=== PATIENT | female | born 1970 | race Caucasian/White ===

== ENCOUNTER → 2018-03-27 09:07 | Outpatient (CLI) | payer OTHER, SELFPAY ==
[2018-03-27 09:41] LABS: Bacteria Urine None Seen; WBC Urine None Seen (0-5/HPF)
[2018-03-27 09:59] LABS: Add Manual Diff / Slide Review NO; Basophils Percent Auto 0.8 % (0-2); Hematocrit 35.8 % (36-46); Lymphocytes Percent Auto 26.7 % (25-40); Mean Corpuscular HGB Conc 33.5 % (30-36); Mean Corpuscular Hemoglobin 27.5 PG (26-34); Mean Corpuscular Volume 81.9 fL (80-100); Monocytes Percent Auto 4.6 % (3-14); Neutrophils Absolute Auto 3600 /uL (3000-5900); Neutrophils Percent Auto 65.9 % (50-75); Platelet Count 212 X10^3/uL (150-400); Red Blood Cell Count 4.37 X10^6/uL (4.0-5.2); Red Cell Distribution Width 14.3 % (11.6-14.8); White Blood Cell Count 5.5 X10^3/uL (4.5-11.0)
[2018-03-27 10:00] LABS: Appearance Urine UA CLEAR; Bilirubin Urine UA NEGATIVE (NEGATIVE); Color Urine UA YELLOW; Glucose Urine UA NEGATIVE (Normal); Ketones Urine UA NEGATIVE (NEGATIVE); Leukocyte Esterase Urine UA NEGATIVE (NEGATIVE); Nitrite Urine UA NEGATIVE (Negative); Occult Blood Urine UA 3+ (Negative); Protein Urine UA NEGATIVE (Negative); Specific Gravity Urine UA <=1.005 (1.000-1.035); Urobilinogen Urine UA 0.2 E.U./dL (0.2)
[2018-03-27 10:10] LABS: BUN Creatinine Ratio 16.3 (6-22); Blood Urea Nitrogen 13 mg/dL (7-17); Calcium 9.5 mg/dL (8.4-10.2); Carbon Dioxide 32 mmol/L (22-32); Chloride 102 mmol/L (98-107); Estimated Glomerular Filt Rate > 60.0 mL/min (>60); Glucose 95 mg/dL (70-100); HEMOLYSIS < 15 (0-50); Potassium 4.4 mmol/L (3.4-5.1); Sodium 147 mmol/L (137-145)
[2018-03-27 10:20] LABS: Culture Indicated Urine Cult Not Indicated; RBC Urine 1-5/HPF (0-5/HPF); Squamous Epithelial Cell Urine 1-5 /HPF
== END ==
PROVIDERS: PCP Family Medicine; Visit Provider Obstetrics & Gynecology
DX: N94.89 Other specified conditions associated with female genital organs and menstrual cycle (principal)
CPT/HCPCS: 36415; 80048; 81001; 85025; 86850; 86900; 86901

== ENCOUNTER → 2018-03-27 09:38 | Outpatient (CLI) | payer OTHER, SELFPAY | PROVIDERS: PCP Family Medicine; Visit Provider Obstetrics & Gynecology | DX: N94.89 Other specified conditions associated with female genital organs and menstrual cycle (principal) ==

== ENCOUNTER 2018-03-29 06:22 | Inpatient (IN) | payer OTHER, SELFPAY ==
[2018-03-24 14:43] VITALS: BMI 26.5
[2018-03-29] VITALS (19 sets, daily range): BP systolic 95–121; BP diastolic 48–74; PULSE 70–90; RESP 12–18; TEMP 36.1–37.1; O2SAT 95–100; BMI 26.5
--- NOTE | 2018-03-29 | PATH_ITS ---
[facility] Accession Number: [id number] . 01 Material submitted: . UTERUS, CERVIX, BILATERAL FALLOPIAN TUBES AND OVARIES . 02 Diagnosis: Uterus with Bilateral Fallopian Tubes and Ovaries: Adenomyosis, uterus. Disordered proliferative endometrium, negative for atypia. Serous cystadenoma, left ovary, negative for atypia. Hydrosalpinx, right fallopian tube. Small peritubal cyst, left fallopian tube. MRV/03/31/2018 . 02 Electronically signed: . Boni Chase MD, Pathologist NPI- [id number] . 01 Gross description: . Received in formalin, labeled uterus, cervix, bilateral fallopian tubes + ovaries, is a uterus (118 grams, 4.8 cm AP, 10.2 cm SI, 5.5 cm ML) with attached ovaries (right-4.0 x 1.2 x 0.5 cm; left-4.3 x 3.2 x 2.8 cm) and fimbriated fallopian tubes (right: length - 6.7 cm, diameter - up to 0.9 cm; left: length - 5.5 cm, diameter - up to 0.9 cm). The cervix (2.0 cm AP, 2.6 cm ML) has a transverse os and patent endocervical canal. The endometrium (average thickness - 0.2 cm) is cui-pink smooth and flat. The myometrium (thickness - 2.2 cm) is cui-white and unremarkable. The serosa is pale cui smooth and shiny. The ovaries have mckay-yellow smooth and shiny bosselated and focally flat serosa. The right ovary has cui-mckay solid firm parenchyma with corpus albicans and corpus luteum identified. The left ovary has cui-mckay solid cystic parenchyma with corpus albicans and corpus luteum identified. The cavity (3.5 x 2.5 x 1.2 cm) contains red-brown watery fluid. The lining is smooth and flat with no excrescences identified. The fallopian tubes have dark maroon smooth and shiny serosa and cui dilated lumens partially filled with dark maroon viscous fluid. Section code: (A1) anterior cervix; (A2) posterior cervix; (A3-A5) anterior endomyometrium; (A6-A8) posterior endomyometrium; (A9) right ovary, provider relations representative serial sections; (A10-A12) left ovary, provider relations representative serial sections; (A13) right fallopian tube, provider relations representative serial sections; (A14) right fimbria, bivalved, entirely submitted; (A15) left fallopian tube, provider relations representative serial sections; (A16-A17) left fimbria, bivalved, entirely submitted. ([id number]) /[facility] . 02 Pathologist provided ICD-10: N80.0 . 02 CPT . 102431 Performed at: 01 [facility] [address] [id number] MD Quentin Ferrari MD Phone: [phone] Performed at: 02 [facility] [address] [place] [id number] MD Adin Miller MD Phone: [phone]
[2018-03-29] MEDS: LACTATED RINGERS 1,000 ML 42 ML IV ×2 (07:16→09:32)
--- NOTE | 2018-03-29 08:00 | PM.PREOP ---
Pre-operative Note Interval Note Pre-op Check: Yes History & Physical Reviewed by Physician Changes: No
[2018-03-29] MEDS: CEFAZOLIN 2 GM/100 ML FROZ.PIGGY IV (08:03)
--- NOTE | 2018-03-29 08:46 | SUR.OPER ---
Lithotomy on padded OR bed. Biggs Pad Positioner under torso. Head on pillow, arms padded and tucked at sides. Legs secured in padded yellow fins stirrups.
[2018-03-29] MEDS: BUPIVACAINE 0.25% (PF) VIAL 30 ML INJ (08:54)
[2018-03-29] MEDS: LIDOCAINE 1% W/EPI INJ 15 ML INJ (08:56)
[2018-03-29] MEDS: METOCLOPRAMIDE 10 MG/2 ML INJ IV (10:49)
--- NOTE | 2018-03-29 10:50 | PM.GYNOP.1 ---
Operative Date/Time/Diagnoses Date of procedure: 03/29/18 Time of procedure: 08:00 Pre-op diagnosis: Chronic pelvic pain, Pelvic Congestion Syndrome, Endometriosis Post-op diagnosis: same Procedure: Procedures Operation Date: 03/29/18 07:45 Actual Procedures Side Surgeon p Laparoscopic Assisted Vag Hysterectomy Not Applicable Radha Estevez MD s Laparoscopic Aldynjjn-Jdbuleulreqt-[id number] Bilateral Radha Estevez MD Indications: The patient is a 47-year-old 9 para 4 abortus 5 female here for hysterectomy for definitive surgical management of longstanding pelvic pain. She underwent a diagnostic laparoscopy with insertion of a progestin intrauterine device on 31 August 2017. Operative findings included endometriosis over the ureter in the left posterior cul-de-sac and dilated pelvic veins. The uterus was covered in tiny cystic lesions, one of which was biopsied and returned with normal uterine serosa. Options for treatment of pelvic congestion and suspected endometriosis were reviewed with the patient postoperatively and included hormonal suppression, venous embolization for pelvic congestion, and hysterectomy. She tried trigger point injections for possible abdominal wall source, as she has had tenderness adjacent to her scar. She attended 1 pelvic floor physical therapy visit and discontinued thereafter, not feeling it was helpful. She tried the progestin intrauterine device for 5 months and found no benefit in her pelvic pain. At that time, she felt like hysterectomy was her preferred next step. She describes her pain as approximately 1 year of midline lower abdominal pelvic pain. She can think of no inciting event for the onset which began approximately March 2017. She has regular, monthly menstrual cycles; however, after January 2017, she skipped February and March menses then resumed regular menses in April. She characterizes the pain as grabbing, twisting, and pulling on the the back. It is sharp, constant, and 5 to 6/10 intensity. It is ameliorated by supine position or resting on her left side with her leg bent. Pain is increased when her abdomen is touched, when there is pressure on her abdomen, or when she exercises. She also has deep dyspareunia. There is no change in pain with a full bladder or when she empties her bladder, and pain is not associated with bowel movements. She denies any exacerbation of pain with menses and her menstrual flow was normal. She has had no fever, chills, sweats, dysuria, urgency, frequency, change in color of her urine, nausea, vomiting, diarrhea, constipation, blood in her stool, or change in bowel habits. The technique for hysterectomy was discussed, including possible laparoscopic-assisted versus abdominal hysterectomy or possible supracervical hysterectomy. We also discussed the pros and cons of removing or retaining her ovaries and subsequent menopausal symptoms. The decision was made for laparoscopic-assisted vaginal hysterectomy with bilateral salpingo-oophorectomy. The risks, benefits, limitations, alternatives, and expectations of surgery were discussed, and the consent was reviewed and signed prior to the date of surgery. Surgeon: Radha Estevez Nurse Special: Doug Castellano Anesthesia Type: General and Local (0.25% marcaine and 1% lidocaine with epi) Operative Notes Findings: Exam under anesthesia: The uterus was approximately 8 weeks in size and retroverted. No adnexal masses were palpable. Operative findings: The uterus was approximately 8 weeks in size. The posterior aspect of the uterus was covered with multiple small, white, cystic -appearing lesions suggestive of endometriosis. The right fallopian tube was discontinuous status post tubal surgery. The right ovary appeared small and normal in appearance. The left ovary was enlarged with a 2 x 3 cm simple appearing cyst, and the left fallopian tube was normal in appearance. The ureters were visualized easily during the case and noted to peristalse at the completion of the hysterectomy. Dilated pelvic veins were noted bilaterally. The bladder was adhesed to the anterior uterus status post 4 sections. However, these adhesions were able to be dissected at the time of the surgery. The liver edge appeared normal. The appendix was not visualized. There were no omental or other adhesions noted. Closure Type: primary Specimen(s): other (Uterus, cervix, and bilateral tubes and ovaries) Applied: catheter Estimated blood loss (mL): 85 Blood products transfused: none Procedure in detail: The patient was taken to the operating room, where general endotracheal anesthesia was administered without complications. The patient was placed into the low dorsal lithotomy position with her lower extremities in Yellofin stirrups. Exam under anesthesia was then performed with the findings noted above. Perineum, vagina, and abdomen were then prepped and draped in a sterile fashion. A Campos catheter was then placed. Procedure time-out was then performed. Attention was first turned to the perineum for placement of the uterine manipulator. A sterile bivalve speculum was inserted into the vagina, then the anterior lip of the cervix was grasped with a single-tooth tenaculum. The cervix was then serially dilated using Adolfo dilators until a ZUMI uterine manipulator could be advanced. The balloon was inflated, then the tenaculum and speculum removed from the vagina. Local anesthetic was then injected infraumbilically using 0.25% Marcaine with epinephrine. A horizontal skin incision was then made with a scalpel below the umbilicus measuring approximately 7 mm in length. The abdominal wall was then grasped and tented up while a Veress needle was inserted through the incision. Saline drop test was suggestive of intraperitoneal placement. Carbon dioxide gas insufflation was then performed with appropriate opening pressures noted. After instilling approximately 2 L of carbon dioxide, a 5 mm 0 degree laparoscope within a 5 mm trocar was inserted through the anterior layers of the abdominal wall using Optiview technique. The abdomen and pelvis were visualized with the findings as noted above. The patient was placed into Trendelenburg position for better visualization. A second and third trocar was inserted at the patient's lower quadrants. These were done by first instilling local anesthetic, then incising the skin and inserting a 5 mm trocar under direct visualization using the laparoscopic. An atraumatic grasper was then utilized to manipulate the tissue and improve visualization throughout the pelvis. Gentle traction was then applied on the left distal fallopian tube which was pulled medially and superiorly. The left infundibulopelvic ligament was then cross-clamped, cauterized, and cut using the PlasmaKinetic, and the left peritoneum dissected anteriorly to separate the left ovary from the pelvic sidewall. The left round ligament was then cross clamped, cauterized, and cut. Residual bleeding was controlled with Bovie cautery. The anterior leaf of the broad ligament was undermined with the PlasmaKinetic and the left aspect of the bladder flap created using Bovie cautery. Mildly dense adhesions from the bladder were noted at the midline, and initial dissection was performed using gentle traction. Some residual left parauterine tissue was dissected with cautery and gentle traction, skeletonizing the left uterine vessels. The left uterine artery and vein were then cross clamped, cauterized, and cut using the PlasmaKinetic. Attention was then turned to the right adnexa, where the right distal fallopian tube was grasped and tented anteriorly. The right infundibulopelvic ligament was then cross clamped, cauterized, and cut using the PlasmaKinetic. Dissection on the right side was similar to the left. The right round ligament was then cross clamped, cauterized, and cut and the right anterior leaf of the broad ligament was undermined with the PlasmaKinetic to create the right side of the bladder flap using Bovie cautery. This incision was extended to the midline until the dense adhesion was encountered. Then the adhesed bladder was dissected inferiorly using gentle traction. The right uterine vessels were then skeletonized, cross clamped, cauterized, and cut. Additional cautery was applied as needed to achieve hemostasis. The pelvis was then irrigated and suctioned. Once hemostasis was ensured attention was turned to the perineum for the vaginal portion of the case. Instruments were removed from the abdomen, leaving the trocars in place. The majority of the carbon dioxide gas was allowed to escape. The uterine manipulator was removed. A sterile weighted speculum was placed in the posterior vagina and a Jony placed in the anterior vagina. The cervix was grasped with double toothed tenaculum, then 1% lidocaine with epinephrine was injected circumferentially for hemostasis. A circumferential incision was then made with Bovie cautery. Using blunt dissection with the catalytic converter operator's finger the vaginal mucosa was gently pushed back off the cervix, better visualizing the plane for the anterior-posterior peritoneal entry. The posterior peritoneum was grasped and incised sharply using Metzenbaum scissors. The midline of the posterior vaginal cuff and peritoneum was then tagged with an 0 Vicryl suture for later identification. The Auvard speculum was then inserted into the posterior peritoneum. The anterior peritoneum could not be entered readily, so the uterosacral ligaments were cross-clamped, cut, and suture-ligated with 0 vicryl, then tagged for later identification. The anterior peritonium was then bluntly entered using push with the catalytic converter operator's finger and a moistened lap sponge. The Jony was then replaced. The right cardinal and inferior uterine vessels were then cross clamped with the Magdiel clamp cut and suture ligated with an 0 Vicryl suture. This step was then performed on the patient's left cardinal and uterine vessels as well. The uterus and bilateral fallopian tubes and ovaries were then removed through the vagina. The pedicles were inspected. Bleeding noted at the left side ws controlled by grasping the pedicle with a right angle clamp, then placing a [id number] suture of 0 vicryl. This step was repeated once more on the left and once on the right. Hemostasis was ensured with some additional cautery. Some residual bleeding at the level of the cuff was controlled with Bovie cautery. The peritoneum was then closed with a pursestring suture of 0 Vicryl, starting anteriorly at the bladder peritoneum including both uterosacral ligaments and skiving across the posterior peritoneum. This was tied down, and the vagina was then irrigated with sterile saline. The vaginal mucosa was then closed with serial [id number] sutures of 0 Vicryl. A sponge stick was then placed into the vagina, and attention returned to the patient's abdomen for inspection of the vaginal cuff from above. Carbon dioxide gas was then reinflated into the abdomen. The cuff was irrigated and suctioned. Some residual bleeding anterior to the cuff was controlled with Bovie cautery. The ovarian pedicles were examined and no residual bleeding was noted. At this point the laparoscopic portion of the procedure was deemed complete. The carbon dioxide gas was allowed to escape and the trocars removed from the abdomen. The trocar sites were then closed with 4-0 Monocryl in a subcuticular fashion. Exofin skin glue was then applied. The sponge-stick was then removed from the vagina. At this point the procedure was deemed complete. Sponge, lap, and needle count were correct x3. The patient was subsequently awakened, extubated, and transferred to the PACU in stable condition. Complications: none Post-operative Condition: stable Disposition: Acute Care Plan for aftercare: Admit to [facility]ai overnight, then anticipate discharge home tomorrow. See handout for precautions and limitations.
[2018-03-29] MEDS: ONDANSETRON 4 MG/2 ML INJ IV (10:53)
[2018-03-29] MEDS: fentaNYL 100 MCG/2 ML INJ 25 MCG IV ×4 (11:00→11:15)
--- NOTE | 2018-03-29 11:02 | P.OP_ITS ---
Operative Date/Time/Diagnoses Date of procedure: 03/29/18 Time of procedure: 08:00 Pre-op diagnosis: Chronic pelvic pain, Pelvic Congestion Syndrome, Endometriosis Post-op diagnosis: same Procedure: Procedures Operation Date: 03/29/18 07:45 Actual Procedures Side Surgeon p Laparoscopic Assisted Vag Hysterectomy Not Applicable Radha Estevez MD s Laparoscopic Apppqdcm-[id number] Bilateral Radha Estevez MD Indications: The patient is a 47-year-old 9 para 4 abortus 5 female here for hysterectomy for definitive surgical management of longstanding pelvic pain. She underwent a diagnostic laparoscopy with insertion of a progestin intrauterine device on 31 August 2017. Operative findings included endometriosis over the ureter in the left posterior cul-de-sac and dilated pelvic veins. The uterus was covered in tiny cystic lesions, one of which was biopsied and returned with normal uterine serosa. Options for treatment of pelvic congestion and suspected endometriosis were reviewed with the patient postoperatively and included hormonal suppression, venous embolization for pelvic congestion, and hysterectomy. She tried trigger point injections for possible abdominal wall source, as she has had tenderness adjacent to her C- section scar. She attended 1 pelvic floor physical therapy visit and discontinued thereafter, not feeling it was helpful. She tried the progestin intrauterine device for 5 months and found no benefit in her pelvic pain. At that time, she felt like hysterectomy was her preferred next step. She describes her pain as approximately 1 year of midline lower abdominal pelvic pain. She can think of no inciting event for the onset which began approximately March 2017. She has regular, monthly menstrual cycles; however , after January 2017, she skipped February and March menses then resumed regular menses in April. She characterizes the pain as grabbing, twisting, and pulling on the the back. It is sharp, constant, and 5 to 6/10 intensity. It is ameliorated by supine position or resting on her left side with her leg bent. Pain is increased when her abdomen is touched, when there is pressure on her abdomen, or when she exercises. She also has deep dyspareunia. There is no change in pain with a full bladder or when she empties her bladder, and pain is not associated with bowel movements. She denies any exacerbation of pain with menses and her menstrual flow was normal. She has had no fever, chills, sweats, dysuria, urgency, frequency, change in color of her urine, nausea, vomiting, diarrhea, constipation, blood in her stool, or change in bowel habits. The technique for hysterectomy was discussed, including possible laparoscopic-assisted versus abdominal hysterectomy or possible supracervical hysterectomy. We also discussed the pros and cons of removing or retaining her ovaries and subsequent menopausal symptoms. The decision was made for laparoscopic-assisted vaginal hysterectomy with bilateral salpingo- oophorectomy. The risks, benefits, limitations, alternatives, and expectations of surgery were discussed, and the consent was reviewed and signed prior to the date of surgery. Surgeon: Radha Estevez Travel Consultant: Doug Castellano Anesthesia Type: General and Local (0.25% marcaine and 1% lidocaine with epi) Operative Notes Findings: Exam under anesthesia: The uterus was approximately 8 weeks in size and retroverted. No adnexal masses were palpable. Operative findings: The uterus was approximately 8 weeks in size. The posterior aspect of the uterus was covered with multiple small, white, cystic - appearing lesions suggestive of endometriosis. The right fallopian tube was discontinuous status post tubal surgery. The right ovary appeared small and normal in appearance. The left ovary was enlarged with a 2 x 3 cm simple appearing cyst, and the left fallopian tube was normal in appearance. The ureters were visualized easily during the case and noted to peristalse at the completion of the hysterectomy. Dilated pelvic veins were noted bilaterally. The bladder was adhesed to the anterior uterus status post 4 sections. However, these adhesions were able to be dissected at the time of the surgery. The liver edge appeared normal. The appendix was not visualized. There were no omental or other adhesions noted. Closure Type: primary Specimen(s): other (Uterus, cervix, and bilateral tubes and ovaries) Applied: catheter Estimated blood loss (mL): 85 Blood products transfused: none Procedure in detail: The patient was taken to the operating room, where general endotracheal anesthesia was administered without complications. The patient was placed into the low dorsal lithotomy position with her lower extremities in Yellofin stirrups. Exam under anesthesia was then performed with the findings noted above. Perineum, vagina, and abdomen were then prepped and draped in a sterile fashion. A Campos catheter was then placed. Procedure time-out was then performed. Attention was first turned to the perineum for placement of the uterine manipulator. A sterile bivalve speculum was inserted into the vagina, then the anterior lip of the cervix was grasped with a single-tooth tenaculum. The cervix was then serially dilated using Adolfo dilators until a ZUMI uterine manipulator could be advanced. The balloon was inflated, then the tenaculum and speculum removed from the vagina. Local anesthetic was then injected infraumbilically using 0.25% Marcaine with epinephrine. A horizontal skin incision was then made with a scalpel below the umbilicus measuring approximately 7 mm in length. The abdominal wall was then grasped and tented up while a Veress needle was inserted through the incision. Saline drop test was suggestive of intraperitoneal placement. Carbon dioxide gas insufflation was then performed with appropriate opening pressures noted. After instilling approximately 2 L of carbon dioxide, a 5 mm 0 degree laparoscope within a 5 mm trocar was inserted through the anterior layers of the abdominal wall using Optiview technique. The abdomen and pelvis were visualized with the findings as noted above. The patient was placed into Trendelenburg position for better visualization. A second and third trocar was inserted at the patient's lower quadrants. These were done by first instilling local anesthetic, then incising the skin and inserting a 5 mm trocar under direct visualization using the laparoscopic. An atraumatic grasper was then utilized to manipulate the tissue and improve visualization throughout the pelvis. Gentle traction was then applied on the left distal fallopian tube which was pulled medially and superiorly. The left infundibulopelvic ligament was then cross-clamped, cauterized, and cut using the PlasmaKinetic, and the left peritoneum dissected anteriorly to separate the left ovary from the pelvic sidewall. The left round ligament was then cross clamped, cauterized, and cut. Residual bleeding was controlled with Bovie cautery. The anterior leaf of the broad ligament was undermined with the PlasmaKinetic and the left aspect of the bladder flap created using Bovie cautery. Mildly dense adhesions from the bladder were noted at the midline, and initial dissection was performed using gentle traction. Some residual left parauterine tissue was dissected with cautery and gentle traction, skeletonizing the left uterine vessels. The left uterine artery and vein were then cross clamped, cauterized, and cut using the PlasmaKinetic. Attention was then turned to the right adnexa, where the right distal fallopian tube was grasped and tented anteriorly. The right infundibulopelvic ligament was then cross clamped, cauterized, and cut using the PlasmaKinetic. Dissection on the right side was similar to the left. The right round ligament was then cross clamped, cauterized, and cut and the right anterior leaf of the broad ligament was undermined with the PlasmaKinetic to create the right side of the bladder flap using Bovie cautery. This incision was extended to the midline until the dense adhesion was encountered. Then the adhesed bladder was dissected inferiorly using gentle traction. The right uterine vessels were then skeletonized, cross clamped, cauterized, and cut. Additional cautery was applied as needed to achieve hemostasis. The pelvis was then irrigated and suctioned. Once hemostasis was ensured attention was turned to the perineum for the vaginal portion of the case. Instruments were removed from the abdomen, leaving the trocars in place. The majority of the carbon dioxide gas was allowed to escape. The uterine manipulator was removed. A sterile weighted speculum was placed in the posterior vagina and a Jony placed in the anterior vagina. The cervix was grasped with double toothed tenaculum, then 1% lidocaine with epinephrine was injected circumferentially for hemostasis. A circumferential incision was then made with Bovie cautery. Using blunt dissection with the batch mixer operator's finger the vaginal mucosa was gently pushed back off the cervix, better visualizing the plane for the anterior-posterior peritoneal entry. The posterior peritoneum was grasped and incised sharply using Metzenbaum scissors. The midline of the posterior vaginal cuff and peritoneum was then tagged with an 0 Vicryl suture for later identification. The Auvard speculum was then inserted into the posterior peritoneum. The anterior peritoneum could not be entered readily, so the uterosacral ligaments were cross-clamped, cut, and suture-ligated with 0 vicryl, then tagged for later identification. The anterior peritonium was then bluntly entered using push with the batch mixer operator's finger and a moistened lap sponge. The Jony was then replaced. The right cardinal and inferior uterine vessels were then cross clamped with the Magdiel clamp cut and suture ligated with an 0 Vicryl suture. This step was then performed on the patient's left cardinal and uterine vessels as well. The uterus and bilateral fallopian tubes and ovaries were then removed through the vagina. The pedicles were inspected. Bleeding noted at the left side ws controlled by grasping the pedicle with a right angle clamp, then placing a fore -and-aft suture of 0 vicryl. This step was repeated once more on the left and once on the right. Hemostasis was ensured with some additional cautery. Some residual bleeding at the level of the cuff was controlled with Bovie cautery. The peritoneum was then closed with a pursestring suture of 0 Vicryl, starting anteriorly at the bladder peritoneum including both uterosacral ligaments and skiving across the posterior peritoneum. This was tied down, and the vagina was then irrigated with sterile saline. The vaginal mucosa was then closed with serial [id number] sutures of 0 Vicryl. A sponge stick was then placed into the vagina, and attention returned to the patient's abdomen for inspection of the vaginal cuff from above. Carbon dioxide gas was then reinflated into the abdomen. The cuff was irrigated and suctioned. Some residual bleeding anterior to the cuff was controlled with Bovie cautery. The ovarian pedicles were examined and no residual bleeding was noted. At this point the laparoscopic portion of the procedure was deemed complete. The carbon dioxide gas was allowed to escape and the trocars removed from the abdomen. The trocar sites were then closed with 4-0 Monocryl in a subcuticular fashion. Exofin skin glue was then applied. The sponge-stick was then removed from the vagina. At this point the procedure was deemed complete. Sponge, lap, and needle count were correct x3. The patient was subsequently awakened, extubated, and transferred to the PACU in stable condition. Complications: none Post-operative Condition: stable Disposition: Acute Care Plan for aftercare: Admit to tsai overnight, then anticipate discharge home tomorrow. See handout for precautions and limitations.
[2018-03-29] MEDS: LACTATED RINGERS 1,000 ML 100 ML IV ×2 (12:22→22:42)
[2018-03-29] MEDS: ESTRADIOL 0.05 MG PATCH TOP (12:22)
[2018-03-29] MEDS: KETOROLAC 30 MG/ML VIAL IV (14:22)
--- NOTE | 2018-03-29 16:42 | PC.NURSE ---
Addendum entered by Hollie Salas R.N. 03/29/18 19:41: pt tolerated dinner (pasta primavera) moderately, stated she could only eat a couple bites then she didn't feel well and needed to lay down. Patient refusing pain medications and nausea medications. I offered david anitha, saltines, and jello but pt stated she just doesn't have an appetite. Reported feeling okay sitting up in chair, but less than an hour pt reported not feeling well and wanted to lay back in bed. Campos was moved by family and was at patient level, we needed to educate patient to keep Campos bag low to help drain, pt understood. Original Note: MARIANNE pt AOx4, denying N/V/D, reporting 2/[address] Estevez visited pt at change of shift and mentioned we can get pt up in room, remove Campos at 0500am, and possible DC tomorrow (03/30). said she'll be back mid-day (said late morning, early afternoon) to [facility].
[2018-03-29] MEDS: DOCUSATE 250 MG CAPSULE PO (22:40)
[2018-03-29] MEDS: OXYCODONE/ACETAMINOPHEN 5/325 TABLET 2 TAB PO (22:42)
[2018-03-30] VITALS (10 sets, daily range): BP systolic 96–121; BP diastolic 57–75; PULSE 71–86; RESP 14–16; TEMP 36.2–36.9; O2SAT 97–100
--- NOTE | 2018-03-30 05:42 | PC.NURSE ---
NOC Note: Pt had denied pain this shift, denies n/v. Campos cath dc'd at 0500 as ordered. No post op discharge noted. Lap site MILLA, dry and intact with glue.
[2018-03-30 05:43] LABS: Add Manual Diff / Slide Review NO; Basophils Percent Auto 0.2 % (0-2); Eosinophils Percent Auto 0.4 % (2-4); Hematocrit 28.2 % (36-46); Hemoglobin 9.7 g/dL (12.0-16.0); Lymphocytes Percent Auto 21.4 % (25-40); Mean Corpuscular HGB Conc 34.2 % (30-36); Mean Corpuscular Volume 81.9 fL (80-100); Monocytes Percent Auto 4.6 % (3-14); Neutrophils Absolute Auto 6200 /uL (3000-5900); Neutrophils Percent Auto 73.4 % (50-75); Platelet Count 186 X10^3/uL (150-400); Red Blood Cell Count 3.45 X10^6/uL (4.0-5.2); Red Cell Distribution Width 14.6 % (11.6-14.8); White Blood Cell Count 8.4 X10^3/uL (4.5-11.0)
[2018-03-30 05:54] LABS: BUN Creatinine Ratio 11.3 (6-22); Blood Urea Nitrogen 9 mg/dL (7-17); Calcium 8.3 mg/dL (8.4-10.2); Carbon Dioxide 30 mmol/L (22-32); Chloride 105 mmol/L (98-107); Estimated Glomerular Filt Rate > 60.0 mL/min (>60); Glucose 94 mg/dL (70-100); HEMOLYSIS < 15 (0-50); Potassium 3.6 mmol/L (3.4-5.1); Sodium 142 mmol/L (137-145)
[2018-03-30] MEDS: DOCUSATE 250 MG CAPSULE PO (10:13)
[2018-03-30] MEDS: INFLUENZA VACCINE 0.5 ML SYRINGE IM (10:18)
--- NOTE | 2018-03-30 11:22 | CM.DANOTE ---
DCP: Case received, EMR reviewed and met with patient. Introduced self and role. DCP template completed with information currently available. Patient is a 47 year old female who admitted yesterday morning to the care of the hospitalist team. PCP: Dr. Greco. Payer: confirmed: Tia Powell. Patient came to hospital for hysterectomy. Has had history of chronic pelvic pain. Patient alert and pleasant. Lives in [place] with her spouse. P: Patient is to go home when stable, post surgery. Jaimee Art RN/Clinical Specialty Rep
[2018-03-30] MEDS: ACETAMINOPHEN 325 MG TABLET 650 MG PO (12:43)
--- NOTE | 2018-03-30 14:43 | PC.NURSE ---
Day Shift- Pt A&OX4, appropriate, voided several times without difficulty after haskins catheter removed. S/L'd at 0730. BP 117/73 & 121/75. Pt denied pain this AM, around 1130, reported 2-3/10 dull aching to mid lower abd. 's office called at 1200 and left a message. Call back rec'd by fellow RN and new order for Tylenol prn rec'd at given at 1243 which was effective. Pt did not want to take more narcotics. Pt ambulated in halls for 1 lap around unit with internal communications writer and 1 lap around unit with her . Steady gait. Abd lap sites X3 well approximated with glue. No further voiced concerns, states wants to go home today.
--- NOTE | 2018-03-30 15:57 | P.DS_ITS ---
History of Present Illness Chief complaint: Chronic pelvic pain Narrative: Please see admission H&P for details. Discharge Providers Date of admission: 03/29/18 06:22 Primary care physician: Janette Greco MD Discharge provider: Radha Estevez MD Discharge Date: 03/30/18 Summary Discharge Diagnosis: Chronic pelvic pain now status post laparoscopic-assisted vaginal hysterectomy with bilateral salpingo-oophorectomy Hospital Course: After an uncomplicated surgery, the patient was admitted to the PACU then the tsai in stable condition. Overnight, pain was controlled with IV Toradol, Percocet, and IV morphine as needed. On postoperative day 1, her Campos catheter was removed, and she met her due to void without any problems. Her diet was advanced to regular as tolerated. She was discharged home once she was eating, tolerating regular diet, voiding freely, and controlling pain with oral pain medication. She had no fevers, chills, or chest pain during her hospital stay. Vital signs were normal and stable. Status at Discharge Cognitive/behavioral status at discharge: Appropriate Functional status at discharge: independent ambulation Overall status at discharge: patient is progressing back to baseline Time Spent with Patient Less than 30 minutes Exam Vital Signs (past 8 hours): - 03/30/18 09:00 03/30/18 11:33 03/30/18 12:15 Temperature 97.2 F L Pulse Rate 71 Respiratory Rate 16 Blood Pressure 121/75 Pulse Oximetry 98 100 98 03/30/18 15:44 Temperature 97.9 F Pulse Rate 81 Respiratory Rate 16 Blood Pressure 100/60 Pulse Oximetry 98 Oxygen Delivery Method Room Air Oxygen Flow Rate 0 Narrative Exam Narrative: General: The patient is awake and alert, sitting up in bed. She is in no apparent distress. Lungs: Clear to auscultation bilaterally with no wheezes or crackles. Heart: Regular rate and rhythm with no murmurs, rubs, or gallops. Abdomen: Soft and appropriately tender. Bowel sounds heard throughout. Minimal distention noted. Incisions: Laparoscopy incisions x3 well-approximated with no erythema, separation, or discharge. Skin adhesive intact. Extremities: Warm and well perfused with no clubbing, cyanosis, or edema. Objective Labs Result Diagrams: 03/30/18 05:17 03/30/18 05:17 Labs: Laboratory Results - last 24 hr 10/23/18 10/23/18 05:17 05:17 WBC 8.4 RBC 3.45 L Hgb 9.7 L Hct 28.2 L MCV 81.9 MCH 28.0 MCHC 34.2 RDW 14.6 Plt Count 186 Neut % (Auto) 73.4 Lymph % (Auto) 21.4 L Fleming % (Auto) 4.6 Eos % (Auto) 0.4 L Baso % (Auto) 0.2 Neut # (Auto) 6200 H Sodium 142 Potassium 3.6 Chloride 105 Carbon Dioxide 30 BUN 9 Creatinine 0.80 Estimated GFR > 60.0 BUN/Creatinine Ratio 11.3 Glucose 94 Calcium 8.3 L Discharge Plan Discharge Plan Patient Disposition: Home Discharge comment: See handout for instructions. Pt has postop meds at home. Discharge Med Rec/Prescriptions Prescriptions: No Action albuterol sulfate [Ventolin HFA] 90 MCG/PUFF HFA aerosol inhaler 2 puff INH PRN PRN (Reason: cold air) Qty: 0 RF: 0 Follow up/Referrals: Radha Estevez MD [Physician] - 04/07/18 9:30 am (Appt scheduled at [facility] Provider Discharge Instructions Diet: Diet as Tolerated and Regular Activity: Pelvic rest for 6 weeks. No driving for 1-2 weeks (may drive once pain-free off narcotics). No exercise or heavy lifting for 4 weeks. Cold/Heat Therapy: As needed for pain Oxygen: None Other treatments: None Skin/Wound/Dressing Care Skin care: OK to shower Report to your healthcare provider any signs of infection, such as:: chills, fever, night sweats, increased pain and unusual drainage Dressing: None Other wound treatment: Keep incisions clean and dry (after showering) Visit Report/Discharge Packet Print Language: [place] Discharge Data Primary Care Provider: Janette Greco Attending Provider: Radha Estevez Admit Date/Time: 03/29/18 06:22
== END 2018-03-30 17:06 | disposition home or self-care (01) | DRG 983 ==
PROVIDERS: Admitting Provider Obstetrics & Gynecology; PCP Family Medicine; Visit Provider Obstetrics & Gynecology
PROC: 0UT9FZZ Resection of Uterus, Via Natural or Artificial Opening With Percutaneous Endoscopic Assistance (ICD-10-PCS; principal; 2018-03-29 07:45)
PROC: 0UT74ZZ Resection of Bilateral Fallopian Tubes, Percutaneous Endoscopic Approach (ICD-10-PCS; CPT 58661; 2018-03-29 07:45)
DX: R10.2 Pelvic and perineal pain (principal); N94.89 Other specified conditions associated with female genital organs and menstrual cycle; N80.0 Endometriosis of uterus
CPT/HCPCS: 36415; 80048; 85025; 88307; 90471; 90656; J0690; J1100; J1885; J2250; J2405; J2704; J2765; J3010; Q2038